=== PATIENT | female | born 1965 | race Caucasian/White ===

== ENCOUNTER 2022-07-17 20:31 | Observation (INO) ==
[2022-07-17] MEDS ORDERED: ALUM/MAG/SIMETH/LIDO VISC 1:1 30 ML BOTTLE PO STA (20:59)
[2022-07-17] MEDS ORDERED: PANTOPRAZOLE 40 MG VIAL IV STA (21:00)
[2022-07-17] MEDS ORDERED: SODIUM CHLORIDE 0.9% 1,000 ML IV STA (21:00)
[2022-07-17] MEDS ORDERED: hydrALAZINE 20 MG/1 ML VIAL IV STA (21:13)
[2022-07-17 22:02] LABS: Basophils # 0.1 10*3/uL (0.0-0.2); Basophils % 0.5 % (0.0-0.8); Eosinophils # 0.1 10*3/uL (0.0-0.87); Eosinophils % 0.8 % (0.00-10.9); Hematocrit 42.3 VOL% (35.7-47.0); Hemoglobin 13.1 GM/DL (12.0-16.0); Immature Granulocytes % 0.3 %; Immature Granulocytes Absolute 0.03 #; Lymphocytes # 2.1 10*3/uL (1.4-4.0); Lymphocytes % 19.7 % (21.3-54.2); Mean Corpuscular Volume 80.1 FL (87-102); Mean Platelet Volume 9.4 FL (9.6-12.0); Monocytes # 0.6 10*3/uL (0.11-0.8); Monocytes % 5.7 % (1.7-12.7); Platelet Count 413 T/CUMM (130-400); Red Blood Count 5.28 MC/CUMM (3.8-5.5); Red Cell Distribution Width 17.1 % (9.3-17.3); White Blood Count 10.4 T/CUMM (4-12)
[2022-07-17 22:06] LABS: Bilirubin,Urine Negative (Negative); Blood, Urine Negative (Negative); Glucose,Urine (UA) Negative (Negative); Ketones,Urine Negative (Negative); Nitrite,Urine Negative (Negative); Protein,Urine Trace mg/dL (Negative); Urine Appearance Clear (Clear); Urine Color Yellow (Yellow); Urine Urobilinogen 0.2 eU/dL (<2.0)
[2022-07-17 22:21] LABS: Albumin 3.8 G/DL (3.4-5.0); Bilirubin,Total 0.5 MG/DL (0.20-1.00); Calcium 9.3 MG/DL (8.5-10.1); Osmolality,Calculated 278.5 MOS/KG (273-304); Potassium 3.3 MMOL/L (3.5-5.1); Total Protein 8.1 G/DL (6.4-8.2)
[2022-07-17 22:23] LABS: Bacteria,Urine Occasional /HPF (Few); Mucus,Urine Occasional /LPF (Occasional); RBC,Urine 2 /HPF (0-4); Squamous Epithelial Cell,Urine Occasional /HPF (0-10)
[2022-07-17] MEDS ORDERED: ONDANSETRON 4 MG/2 ML VIAL IV PRN (23:16)
[2022-07-18] MEDS: DEXT 5% NACL 0.45% KCL 40 MEQ 40 MEQ/1,000 ML BAG IV SCH ×3 (00:28→21:58)
[2022-07-18] MEDS ORDERED: INFLUENZA VIRUS VACCINE 0.5 ML SYRINGE IM ONE (04:40)
[2022-07-18 06:14] LABS: Albumin 3.4 G/DL (3.4-5.0); Bilirubin,Total 0.6 MG/DL (0.20-1.00); Osmolality,Calculated 281.4 MOS/KG (273-304); Potassium 3.8 MMOL/L (3.5-5.1); Total Protein 7.4 G/DL (6.4-8.2)
[2022-07-18 06:28] LABS: Basophils # 0.1 10*3/uL (0.0-0.2); Basophils % 0.5 % (0.0-0.8); Eosinophils # 0.1 10*3/uL (0.0-0.87); Eosinophils % 0.7 % (0.00-10.9); Hematocrit 43.8 VOL% (35.7-47.0); Immature Granulocytes % 0.3 %; Immature Granulocytes Absolute 0.03 #; Lymphocytes # 1.9 10*3/uL (1.4-4.0); Lymphocytes % 20.8 % (21.3-54.2); Mean Corpuscular HGB Conc 29.5 GM/DL (32-36); Mean Corpuscular Volume 84.6 FL (87-102); Mean Platelet Volume 10.3 FL (9.6-12.0); Monocytes # 0.6 10*3/uL (0.11-0.8); Monocytes % 6.5 % (1.7-12.7); Neutrophils % 71.2 % (38.7-73.9); Platelet Count 325 T/CUMM (130-400); Red Blood Count 5.18 MC/CUMM (3.8-5.5); Red Cell Distribution Width 17.7 % (9.3-17.3); White Blood Count 9.1 T/CUMM (4-12)
[2022-07-18 06:30] LABS: Hemoglobin 12.9 GM/DL (12.0-16.0)
[2022-07-18] MEDS ORDERED: PROMETHAZINE 25 MG TABLET PO PRN (07:18)
[2022-07-18] MEDS ORDERED: GABAPENTIN 300 MG CAPSULE PO PRN (07:18)
[2022-07-18] MEDS ORDERED: DEXTROSE 10% 250 ML BAG IV PRN (07:27)
[2022-07-18] MEDS ORDERED: GLUCAGON 1 MG VIAL IM PRN (07:27)
[2022-07-18] MEDS ORDERED: PANTOPRAZOLE 40 MG VIAL IV SCH (09:00)
[2022-07-18] MEDS: INSULIN LISPRO 100 UNIT/ML SUBCUT SCH ×3 (10:15→17:39)
[2022-07-18] MEDS: ASPIRIN CHEW 81 MG TABLET PO SCH ×2 (11:55→12:10)
[2022-07-18] MEDS: ACETAZOLAMIDE 500 MG PO SCH ×2 (11:55→21:17)
[2022-07-18] MEDS: MAGNESIUM HYDROXIDE SUSP 30 ML UDCUP PO SCH (11:56)
[2022-07-18] MEDS: CITALOPRAM 20 MG TABLET PO SCH (11:56)
[2022-07-18] MEDS: DULoxetine 30 MG CAPSULE PO SCH (11:56)
[2022-07-18] MEDS: DIVALPROEX 250 MG TABLET PO SCH ×2 (11:56→21:18)
[2022-07-18] MEDS: ATORVASTATIN 20 MG TABLET PO SCH (11:56)
[2022-07-18] MEDS: PRAMIPEXOLE 0.25 MG TABLET PO SCH ×3 (11:57→21:18)
[2022-07-18] MEDS: tiZANidine 4 MG TABLET PO SCH (11:57)
[2022-07-18] MEDS: GABAPENTIN 300 MG CAPSULE PO SCH ×2 (11:57→21:18)
[2022-07-18] MEDS: CHOLECALCIFEROL 1,000 UNIT TABLET PO SCH (11:57)
[2022-07-18] MEDS ORDERED: ASPIRIN 325 MG TABLET PO ONE (12:02)
[2022-07-18] MEDS ORDERED: NITROGLYCERIN SL 0.4 MG TABLET SL ONE (12:03)
[2022-07-18] MEDS: carvediloL 6.25 MG TABLET PO SCH ×2 (12:10→21:17)
[2022-07-18] MEDS ORDERED: ALUM/MAG/SIMETH/LIDO VISC 1:1 30 ML BOTTLE PO ONE (12:36)
[2022-07-18] MEDS ORDERED: NITROGLYCERIN SL 0.4 MG TABLET SL PRN (12:37)
[2022-07-18] MEDS ORDERED: NITROGLYCERIN 2% OINT 1 INCH/GM PACK TOP ONE (12:37)
[2022-07-18] MEDS ORDERED: KETOROLAC 30 MG/1 ML VIAL IV ONE (12:37)
[2022-07-18] MEDS ORDERED: clonazePAM 0.5 MG TABLET PO ONE (12:58)
[2022-07-18 14:19] LABS: Risk Ratio 3.37; VLDL Cholesterol 19.6 MG/DL
[2022-07-18] MEDS ORDERED: clonazePAM 0.5 MG TABLET PO PRN (16:45)
[2022-07-18] MEDS ORDERED: cloNIDine 0.1 MG TABLET PO PRN (16:46)
[2022-07-18] MEDS: LOSARTAN 50 MG TABLET PO SCH (17:00)
[2022-07-18] MEDS ORDERED: PANTOPRAZOLE 40 MG TABLET PO SCH (21:00)
[2022-07-18] MEDS ORDERED: tiZANidine 4 MG TABLET PO SCH (21:00)
[2022-07-18] MEDS ORDERED: clonazePAM 0.5 MG TABLET PO SCH (21:00)
[2022-07-18] MEDS ORDERED: NORTRIPTYLINE 25 MG CAPSULE PO SCH (21:00)
[2022-07-18] MEDS: PANTOPRAZOLE 40 MG VIAL IV SCH (21:19)
[2022-07-19] MEDS: INSULIN LISPRO 100 UNIT/ML SUBCUT SCH ×3 (02:31→12:30)
[2022-07-19 06:00] LABS: Basophils # 0.1 10*3/uL (0.0-0.2); Basophils % 0.6 % (0.0-0.8); Eosinophils # 0.1 10*3/uL (0.0-0.87); Eosinophils % 0.9 % (0.00-10.9); Hematocrit 38.1 VOL% (35.7-47.0); Hemoglobin 11.5 GM/DL (12.0-16.0); Immature Granulocytes % 0.2 %; Immature Granulocytes Absolute 0.02 #; Lymphocytes # 1.9 10*3/uL (1.4-4.0); Lymphocytes % 22.8 % (21.3-54.2); Mean Corpuscular HGB Conc 30.2 GM/DL (32-36); Mean Corpuscular Volume 81.9 FL (87-102); Mean Platelet Volume 11.2 FL (9.6-12.0); Monocytes # 0.4 10*3/uL (0.11-0.8); Monocytes % 4.9 % (1.7-12.7); Neutrophils % 70.6 % (38.7-73.9); Platelet Count 253 T/CUMM (130-400); Red Blood Count 4.65 MC/CUMM (3.8-5.5); Red Cell Distribution Width 17.2 % (9.3-17.3); White Blood Count 8.5 T/CUMM (4-12)
[2022-07-19 06:22] LABS: Calcium 9.1 MG/DL (8.5-10.1); Osmolality,Calculated 275.7 MOS/KG (273-304); Potassium 4.5 MMOL/L (3.5-5.1)
[2022-07-19] MEDS ORDERED: LACTATED RINGERS 1,000 ML IV SCH (08:00)
[2022-07-19] MEDS: DEXT 5% NACL 0.45% KCL 40 MEQ 40 MEQ/1,000 ML BAG IV SCH (12:25)
[2022-07-19] MEDS: ASPIRIN CHEW 81 MG TABLET PO SCH (12:26)
[2022-07-19] MEDS: ACETAZOLAMIDE 500 MG PO SCH (12:26)
[2022-07-19] MEDS: LOSARTAN 50 MG TABLET PO SCH (12:28)
[2022-07-19] MEDS: CITALOPRAM 20 MG TABLET PO SCH (12:28)
[2022-07-19] MEDS: carvediloL 6.25 MG TABLET PO SCH (12:28)
[2022-07-19] MEDS: GABAPENTIN 300 MG CAPSULE PO SCH (12:29)
[2022-07-19] MEDS: DIVALPROEX 250 MG TABLET PO SCH (12:29)
[2022-07-19] MEDS: DULoxetine 30 MG CAPSULE PO SCH (12:29)
[2022-07-19] MEDS: PRAMIPEXOLE 0.25 MG TABLET PO SCH (12:29)
[2022-07-19] MEDS: ATORVASTATIN 20 MG TABLET PO SCH (12:29)
[2022-07-19] MEDS: MAGNESIUM HYDROXIDE SUSP 30 ML UDCUP PO SCH (12:29)
[2022-07-19] MEDS: tiZANidine 4 MG TABLET PO SCH (12:30)
[2022-07-19] MEDS: PANTOPRAZOLE 40 MG VIAL IV SCH (12:30)
[2022-07-19] MEDS: CHOLECALCIFEROL 1,000 UNIT TABLET PO SCH (12:30)
[2022-07-19 13:07] VITALS: BP 180/88
== END 2022-07-19 16:08 | disposition home or self-care (01) ==
LOC: EDUNIT# → EDBD → N.ED 20:31 → N.EDINP 20:31 → N.2W 23:58
PROVIDERS: ADMIT Internal Medicine; ATTEND Internal Medicine